=== PATIENT | male | born 1965 | race Two or more races ===

== ENCOUNTER 2025-05-28 07:23 | Outpatient (CLI) | payer OTHER | END 2025-05-28 07:50 | disposition home or self-care (01) | LOC: TOM 07:23 | PROVIDERS: ATTEND Internal Medicine Hematology & Oncology | DX: C80.1 Malignant (primary) neoplasm, unspecified (principal); C7B.8 Other secondary neuroendocrine tumors; K76.89 Other specified diseases of liver ==

== ENCOUNTER 2025-06-18 08:13 | Outpatient (CLI) | payer OTHER ==
[2025-06-18 09:13] LABS: FE 108.0 ug/dl (65-175)
[2025-06-19 09:11] LABS: ALPHA 1 ANTITRYPSIN 124 mg/dL (101-187); hav igm Negative (Negative); hep b c Negative (Negative); hep b s ag Negative (Negative)
== END 2025-06-18 08:14 | disposition home or self-care (01) ==
LOC: LAB 08:13
DX: R94.5 Abnormal results of liver function studies (principal); N50.0 Atrophy of testis

== ENCOUNTER 2025-08-28 06:28 | Emergency (ER) | payer OTHER ==
[~2025-08-28] VITALS: Ht 170.2 cm; Wt 88.5 kg
[2025-08-28 06:40] VITALS: O2SAT 97
[2025-08-28] MEDS ORDERED: IPRATROPIUM BROMIDE 0.5 MG/2.5 ML AMPUL.NEB IH ONE ×2 (07:30→08:01)
[2025-08-28] MEDS ORDERED: CETIRIZINE HCL 10 MG TABLET PO ONE (07:30)
[2025-08-28] MEDS ORDERED: ENALAPRILAT DIHYDRATE 1.25 MG/ML VIAL IV ONE ×2 (07:38→07:45)
[2025-08-28] MEDS ORDERED: CETIRIZINE HCL 5MG/5ML BLIST.PACK PO ONE (07:38)
[2025-08-28 08:07] LABS: BASO % 0.2 % (0.1-1.2); EOS # 0.07 (0.04-0.54); EOS % 0.5 % (0.7-7.0); LYMPH # 0.74 (1.18-3.74); LYMPH % 5.0 % (19.3-53.1); MEAN PLATELET VOLUME 8.50 fl (9.4-12.4); MONO # 1.03 (0.24-0.82); MONO % 6.9 % (4.7-12.5); NEUT # 12.85 (1.56-6.13); NEUT % 86.4 % (34.0-71.1); RED CELL DISTRIBUTION WIDTH 12.0 % (11.6-14.4)
[2025-08-28 08:48] LABS: ALT/SGPT 38.0 U/L (12-78); AST/SGOT 18.0 U/L (15-37); BILIRUBIN TOTAL 0.39 mg/dL (0.3-1.2); BUN CREA RATIO 17.0 (7.0-25.0); CREATININE SERUM 1.14 mg/dL (0.70-1.30); GFR 65.3; GLOBULINA 3.8 G/DL (2.4-3.5); GLUCOSE FASTING 108.0 mg/dL (65-100); OSMOLALITY SERUM 284.0 MOSM/KG (275-295)
[2025-08-28 08:55] VITALS: BP 131/83
[2025-08-28 08:56] LABS: COVID-19 AG NEGATIVE (NEGATIVE)
[2025-08-28 09:09] LABS: URINE APPEARANCE Clear; URINE BILIRRUBIN Negative (NEGATIVE); URINE BLOOD Negative; URINE COLOR Yellow; URINE GLUCOSE Negative (NEGATIVE); URINE KETONE Negative (NEGATIVE); URINE LEUKOCYTE Negative; URINE NITRATE Negative; URINE PROTEIN 30 (NEGATIVE); URINE UROBILINOGEN 0.2 E.U./dl
[2025-08-28 09:15] LABS: URINE BACTERIA 9.6 uL (0.0-1933); URINE CAST 1.31 uL (0.0-1.40); URINE EPITHELIAL CELLS 5.5 uL (0.0-38.8); URINE RBC 1.1 uL (0.0-20.8); URINE WBC 2.1 uL (0.0-23.2)
[2025-08-28] MEDS ORDERED: ANTIVERT25 M2 PO (09:51)
[2025-08-28] MEDS ORDERED: ALLERGY RELIEF10 M3 PO (09:51)
== END 2025-08-28 10:31 | disposition home or self-care (01) ==
LOC: ER 06:28
PROVIDERS: Student in an Organized Health Care Education/Training Program
DX: R42 Dizziness and giddiness (principal); R05.9 Cough, unspecified; Z20.822 Contact with and (suspected) exposure to COVID-19

== ENCOUNTER 2025-09-17 20:40 | Emergency (ER) | payer OTHER ==
[~2025-09-17] VITALS: Ht 170.2 cm; Wt 90.7 kg
[~2025-09-17 20:40] MED LIST: ALLERGY RELIEF10 M3 PO; ANTIVERT25 M2 PO
[2025-09-17] MEDS ORDERED: IBUPROFEN800 MG PO (21:52)
[2025-09-17] MEDS ORDERED: AMOX-CLAV 875-1 EACH PO (21:52)
[2025-09-17] MEDS ORDERED: DEXAMETHASONE SODIUM PHOSPHATE 4 MG/ML VIAL IM ONE (22:00)
[2025-09-17] MEDS ORDERED: CEFTRIAXONE SODIUM 1,000 MG VIAL IM ONE (22:00)
[2025-09-17] MEDS ORDERED: KETOROLAC TROMETHAMINE 30 MG VIAL IM ONE (22:00)
== END 2025-09-17 22:15 | disposition home or self-care (01) ==
LOC: ER 20:40
DX: K08.89 Other specified disorders of teeth and supporting structures (principal)